=== PATIENT | female | born 1975 | race Caucasian/White ===

== ENCOUNTER 2016-12-03 22:06 | Emergency (ER) | payer BC ==
[2016-12-03 22:16] VITALS: TEMP 98.2
[2016-12-03 22:39] LABS: Appearance,Urine Cloudy (Clear); Bilirubin,Urine Negative (Negative); Glucose,Urine (UA) Negative (Negative); Ketones,Urine Negative (Negative); Leukocyte Esterase,Urine Large (Negative); Nitrite,Urine Negative (Negative); Particle Count 5517; Protein,Urine 3+ (Negative); RBC,Urine 104 /hpf (0-5); Squamous Epithelial Cell,Urine 3 /hpf (0-4); UA Billing (MACRO vs. MICRO) MICRO; Urobilinogen,Urine <2.0 mg/dL (<2.0); WBC,Urine >182 /hpf (0-5)
[2016-12-03] MEDS ORDERED: PHENAZOPYRIDINE 100 MG TAB PO STA (22:42)
[2016-12-03] MEDS ORDERED: NITROFURANTOIN MONOHYD/M-CRYST 100 MG CAP PO STA (22:43)
--- NOTE | 2016-12-03 22:47 | ED ---
Female Urogenital HPI - General Chief complaint: Urogenital Stated complaint: Female Time Seen by Provider: 12/03/16 22:16 Source: patient, RN notes reviewed Mode of arrival: ambulatory Limitations: no limitations - History of Present Illness Initial comments: Patient is a 41-year-old female with chief complaint of dysuria, urinary frequency and urgency. Patient reports she's having symptoms for 2 days. She states that she's noticed a slight pink tinge to her urine. She states that she 'll fill if she needs to go to the bathroom only she can dribble out. Patient states she has no fever or chills. Denies any abdominal or back pain. She reports that she's never had a urinary tract infection before. She reports that this may have occurred after intercourse with her . She denies any vaginal discharge or dyspareunia. Patient reports that her last menstrual cycle was one week ago. Last Menstrual Period: 11/21/16 - Related Data Previous Rx's Medication Instructions Recorded Nitrofurantoin Monohyd/M-Cryst 100 mg PO Q12HR #14 cap 12/03/16 [Macrobid] Phenazopyridine [Pyridium] 100 mg PO TID #6 tablet 12/03/16 Allergies Allergy/AdvReac Type Severity Reaction Status Date / Time No Known Allergies Allergy Verified 12/03/16 22:14 Review of Systems ROS Statement: Those systems with pertinent positive or pertinent negative responses have been documented in the HPI. ROS Other: All systems not noted in ROS Statement are negative. Past Medical History Past Medical History: No Reported History History of Any Multi-Drug Resistant Organisms: None Reported Past Surgical History: Tubal Ligation Past Psychological History: No Psychological Hx Reported Smoking Status: Never smoker Past Alcohol Use History: None Reported Past Drug Use History: None Reported General Exam - General Exam Comments Initial Comments: Wasn't 41-year-old female. No distress. General: Well appearing, well nourished, in no distress. Oriented x 3, normal mood and affect . Ambulating without difficulty. Skin: Good turgor, no rash, unusual bruising or prominent lesions Hair: Normal texture and distribution. HEENT: Head: Normocephalic, atraumatic, no visible or palpable masses, depressions, or scaring. Eyes: Visual acuity intact, conjunctiva clear, sclera non-icteric, EOM intact, PERRL. Ears: EACs clear, TMs translucent & cone of light visualized. hearing intact. Nose: No external lesions, mucosa non-inflamed, septum and turbinates normal Mouth: Mucous membranes moist, no mucosal lesions. Teeth/Gums: No obvious caries or periodontal disease. No gingival inflammation or significant resorption. Pharynx: Mucosa non-inflamed, no tonsillar hypertrophy or exudate Neck: Supple, without lesions, bruits, or adenopathy, thyroid non-enlarged and non-tender Heart: No cardiomegaly or thrills; regular rate and rhythm, no murmur or gallop Lungs: Clear to auscultation and percussion Abdomen: Bowel sounds normal, no tenderness, organomegaly, masses, or hernia Back: Spine normal without deformity or tenderness, no CVA tenderness Rectal: Normal sphincter tone, no hemorrhoids or masses palpable Extremities: No amputations or deformities, cyanosis, edema or varicosities, peripheral pulses intact Musculoskeletal: Normal gait and station. No misalignment, asymmetry, crepitation, defects, tenderness, masses, effusions, decreased range of motion, instability, atrophy or abnormal strength or tone in the head, neck, spine, ribs , pelvis or extremities. Neurologic: CN 2-12 normal. Sensation to pain, touch, and proprioception normal. Psychiatric: Oriented X3, intact recent and remote memory, judgment and insight , normal mood and affect. Limitations: no limitations Course Vital Signs 12/03/16 22:14 Temperature 98.2 F Pulse Rate 120 H Respiratory 20 Rate Blood Pressure 144/78 O2 Sat by Pulse 98 Oximetry Medical Decision Making - Medical Decision Making Is 41-year-old [employer] chief complaint of dysuria and urinary frequency for 2 days. She denies any vaginal discharge. She denies any abdominal pain fever tenderness or back pain. Patient's urinalysis was completed and does show significant signs of urinary tract infection with large etc. straights white blood cells and red blood cells. Patient will be discharged with antibiotic and Pyridium. Patient advised to urinate after intercourse as well as remain hydrated. Patient understands treatment plan will comply. Return parameters were discussed. - Lab Data Lab Results 12/03/16 12/03/16 Range/Units 22:25 22:25 Urine Color Yellow Urine Appearance Cloudy H (Clear) Urine pH 6.0 (5.0-8.0) Ur Specific [place] 1.020 (1.001-1.035) Urine Protein 3+ H (Negative) Urine Glucose (UA) Negative (Negative) Urine Ketones Negative (Negative) Urine Blood Moderate H (Negative) Urine Nitrite Negative (Negative) Urine Bilirubin Negative (Negative) Urine Urobilinogen <2.0 (<2.0) mg/dL Ur Leukocyte Esterase Large H (Negative) Urine RBC 104 H (0-5) /hpf Urine WBC >182 H (0-5) /hpf Ur Squamous Epith Cells 3 (0-4) /hpf Urine HCG, Qual Not Detected (Not Detectd) Disposition Clinical Impression: Urinary tract infection Disposition: HOME SELF-CARE Condition: Good Instructions: Urinary Tract Infection in Women (ED) Additional Instructions: Patient advised to increase fluids. Completely anabiotic prescription. Patient sees Dilia also instructed. Return to emergency Department if any alarming signs or symptoms occur. Take Motrin Tylenol for fever or chills or pain. Prescriptions: Nitrofurantoin Monohyd/M-Cryst [Macrobid] 100 mg PO Q12HR #14 cap Phenazopyridine [Pyridium] 100 mg PO TID #6 tablet Time of Disposition: 22:42
[2016-12-03 22:53] VITALS: BP 166/96; PULSE 115; RESP 16
== END 2016-12-03 22:51 | disposition home or self-care (01) ==
LOC: EC 22:06
DX: N39.0 Urinary tract infection, site not specified (principal)
CPT/HCPCS: 81001; 81025; 87077; 87086; 87186; 99283

== ENCOUNTER → 2017-01-13 | Outpatient (CLI) | payer BC ==
--- NOTE | 2017-01-13 11:23 | MM ---
Reason for exam: screening (asymptomatic). Baseline mammogram. History: Family history of breast cancer in mother at age 52. Physical Findings: Nurse did not find any significant physical abnormalities on exam. MG Screening Mammo w CAD Bilateral CC and MLO view(s) were taken. The breast tissue is heterogeneously dense. This may lower the sensitivity of mammography. Focal asymmetry stable right CC view, compression recommended. These results were verbally communicated with the patient and result sheet given to the patient on 01/13/17. ASSESSMENT: Incomplete: need additional imaging evaluation, BI-RAD 0 RECOMMENDATION: Special view mammogram of the right breast.
--- NOTE | 2017-01-13 11:34 | MM ---
Reason for exam: additional evaluation requested from abnormal screening. History: Family history of breast cancer in mother at age 52. Physical Findings: Breast exam preformed at baseline screening. MG Work Up Mamm w CAD RT LM and spot compression CC view(s) were taken of the right breast. The breast tissue is heterogeneously dense. This may lower the sensitivity of mammography. There may be some distortion on compression CC view. No persistent densities are evident. These results were verbally communicated with the patient and result sheet given to the patient on 01/13/17. ASSESSMENT: Probably benign, BI-RAD 3 RECOMMENDATION: Follow-up diagnostic mammogram of the right breast in 6 months.
== END | disposition home or self-care (01) ==
LOC: RADMAMWWP 10:04
PROVIDERS: ATTEND Family Medicine
DX: Z12.31 Encounter for screening mammogram for malignant neoplasm of breast (principal); Z80.3 Family history of malignant neoplasm of breast; R92.8 Other abnormal and inconclusive findings on diagnostic imaging of breast
CPT/HCPCS: G0202; G0206

== ENCOUNTER → 2019-03-29 | Outpatient (CLI) | payer BC ==
--- NOTE | 2019-03-29 09:45 | XR ---
EXAMINATION TYPE: XR lumbosacral spine min 4V DATE OF EXAM: 03/29/2019 CLINICAL HISTORY: On and off back pain for 3 years TECHNIQUE: Frontal, lateral, and oblique images of the lumbar spine are obtained. COMPARISON: None FINDINGS: There are 5 lumbar type vertebral bodies identified. The lumbar spine shows satisfactory alignment without evidence of acute fracture or dislocation. Vertebral body heights and disk space he ights are within normal limits. Mild to moderate anterior and lateral spurring or thoracolumbar junc tion is present. One oblique image is suboptimal in technique, the other is unremarkable. The overly ing soft tissue appears unremarkable. IMPRESSION: As above.
== END | disposition home or self-care (01) ==
LOC: RADXRYALE 08:53
PROVIDERS: ATTEND Physician Assistant Medical
DX: M54.42 Lumbago with sciatica, left side (principal)
CPT/HCPCS: 72110

== ENCOUNTER → 2020-10-30 | Outpatient (CLI) | payer BC ==
--- NOTE | 2020-10-30 09:50 | XR ---
EXAMINATION TYPE: XR knee complete RT DATE OF EXAM: 10/30/2020 COMPARISON: NONE HISTORY: Pain TECHNIQUE: Three views are submitted. FINDINGS: Mild narrowing and hypertrophic spurring involving the medial compartment of the knee and patellofemo ral joint. Small amount of fluid in the suprapatellar bursa.. Osseous structures are intact. No acu te fracture seen. IMPRESSION: 1. No acute fracture or dislocation. 2. Arthropathy correlate for osteoarthritis. 3. Small amount of fluid in the suprapatellar bursa
== END ==
LOC: RADXRYALE 09:32
PROVIDERS: ATTEND Physician Assistant
DX: M17.11 Unilateral primary osteoarthritis, right knee (principal)

== ENCOUNTER → 2021-01-20 | Outpatient (CLI) | payer BC ==
--- NOTE | 2021-01-21 00:05 | MR ---
EXAMINATION TYPE: MR knee RT wo con DATE OF EXAM: 01/20/2021 COMPARISON: None HISTORY: Right knee pain, S/P fall. Multiplanar multiecho imaging of the right knee was performed without contrast. Anterior and posterior cruciate ligaments are intact. The collateral ligaments are intact. There is m oderate knee joint effusion. The medial and lateral menisci appear intact. There is no definite tear. There is slight medial displacement of the medial meniscus. There is no evidence of a fracture. There is some decreased signal in the patella on the T1 images whitfield ggestive of mild edema. There is mild spurring at the patella. There is narrowing of the patellofemor al joint space. There is narrowing of the medial joint space. There is slight decreased cartilage on the articular surfaces. IMPRESSION: Osteoarthritic changes in the knee with cartilage loss. This is present at the patellofemoral joint a nd also medial joint space. No ligamentous tear. No significant meniscal tear. There is some degenera tive thinning of the medial meniscus.
== END | disposition home or self-care (01) ==
LOC: RADMRIMAIN 15:38
PROVIDERS: ATTEND Physician Assistant
DX: M17.11 Unilateral primary osteoarthritis, right knee (principal); M25.861 Other specified joint disorders, right knee; W19.XXXA Unspecified fall, initial encounter

== ENCOUNTER 2021-07-30 12:43 | Inpatient (IN) | payer BC, OTHER ==
[2021-07-30 16:36] LABS: Amphetamine Screen,Urine Not Detected (NotDetected); Barbiturate Screen,Urine Not Detected (NotDetected); Benzodiazepines Screen,Urine Not Detected (NotDetected); Cocaine Screen,Urine Not Detected (NotDetected); Methadone Screen, Urine Not Detected (NotDetected); Opiate Screen,Urine Not Detected (NotDetected); Oxycodone Screen, Urine Not Detected (NotDetected); Phencyclidine Screen,Urine Not Detected (NotDetected); Tricyclic Antidepressant,Urine Not Detected (NotDetected); Urn Cannabinoid Scrn Not Detected (NotDetected)
--- NOTE | 2021-07-30 16:41 | ED ---
Psych HPI - General Source: patient, RN notes reviewed Mode of arrival: ambulatory <Sherwin Rowland - Last Filed: 07/30/21 16:49> <John Go - Last Filed: 07/30/21 20:04> - General Chief Complaint: Psychiatric Symptoms Stated Complaint: Mental Health Time Seen by Provider: 07/30/21 14:58 - History of Present Illness Initial Comments: 46 old female presents to the emergency department complaining of suicidal ideations and increased depression. She notes that for the last 3-month-old her life stressors and issues have been kind of bowling up and coming to ahead at the same time. She notes she lost her mom several months ago which made things harder. She denied any specific plan at this time. She was non-homicidal. She is otherwise well-appearing in no apparent distress. She denied chest pain shortness of breath headache nausea vomiting diarrhea constipation fever fatigue chills. (Sherwin Rowland) - Related Data Home Medications Medication Instructions Recorded Confirmed Acetaminophen Tab [Tylenol Tab] 1,000 mg PO Q6HR PRN 07/30/21 07/30/21 Naproxen Sodium [Aleve] 440 mg PO BID PRN 07/30/21 07/30/21 Allergies Allergy/AdvReac Type Severity Reaction Status Date / Time No Known Allergies Allergy Verified 07/30/21 16:20 Review of Systems ROS Other: All systems not noted in ROS Statement are negative. <Sherwin Rowland - Last Filed: 07/30/21 16:49> ROS Other: All systems not noted in ROS Statement are negative. <John Go - Last Filed: 07/30/21 20:04> ROS Statement: Those systems with pertinent positive or pertinent negative responses have been documented in the HPI. Past Medical History Past Medical History: No Reported History History of Any Multi-Drug Resistant Organisms: None Reported Past Surgical History: Tubal Ligation Past Psychological History: Depression Smoking Status: Former smoker Past Alcohol Use History: Occasional Past Drug Use History: None Reported <Sherwin Rowland - Last Filed: 07/30/21 16:49> General Exam Limitations: no limitations General appearance: alert, in no apparent distress, obese Head exam: Present: atraumatic, normocephalic, normal inspection Eye exam: Present: normal appearance, PERRL, EOMI. Absent: scleral icterus, conjunctival injection, periorbital swelling ENT exam: Present: normal exam, mucous membranes moist Neck exam: Present: normal inspection Respiratory exam: Present: normal lung sounds bilaterally. Absent: respiratory distress, wheezes, rales, rhonchi, stridor Cardiovascular Exam: Present: regular rate, normal rhythm, normal heart sounds. Absent: systolic murmur, diastolic murmur, rubs, gallop, clicks GI/Abdominal exam: Present: soft, normal bowel sounds. Absent: distended, tenderness, guarding, rebound, rigid Extremities exam: Present: normal inspection, full ROM, normal capillary refill. Absent: tenderness, pedal edema, joint swelling, calf tenderness Neurological exam: Present: alert, oriented X3 Psychiatric exam: Present: normal affect, depressed, suicidal ideation. Absent: agitated, anxious, flat affect, manic, homicidal ideation Skin exam: Present: warm, dry, intact, normal color. Absent: rash <Sherwin Rowland - Last Filed: 07/30/21 16:49> Course Vital Signs 07/30/21 12:59 Temperature 97.9 F Pulse Rate 83 Respiratory 16 Rate Blood Pressure 123/87 O2 Sat by Pulse 99 Oximetry Medical Decision Making <Sherwin Rowland - Last Filed: 07/30/21 16:49> <John Go - Last Filed: 07/30/21 20:04> - Medical Decision Making 46-year-old female with increased depression and suicidal ideations with no plan. Urine drug screen and alcohol breath test ordered. Patient was cleared for EPS evaluation. EPS was contacted at 4:30 PM. Case signed out to Dr. Carmona at 4:49 PM (Sherwin Rowland) Care signed out to me by previous physician tiler's assistant, Sage Rowland. Debra rees, patient is a 46-year-old feel presents with suicidal thoughts. Patient was cleared medically pending EPS recommendations. Patient was provided by EPS and will be admitted to 3 W. Patient will sign in voluntarily. (John Go) - Lab Data Lab Results 07/30/21 07/30/21 Range/Units 16:19 19:00 Urine Opiates Screen Not Detected (NotDetected) Ur Oxycodone Screen Not Detected (NotDetected) Urine Methadone Screen Not Detected (NotDetected) Ur Propoxyphene Screen Not Detected (NotDetected) Ur Barbiturates Screen Not Detected (NotDetected) U Tricyclic Antidepress Not Detected (NotDetected) Ur Phencyclidine Scrn Not Detected (NotDetected) Ur Amphetamines Screen Not Detected (NotDetected) U Methamphetamines Scrn Not Detected (NotDetected) U Benzodiazepines Scrn Not Detected (NotDetected) Urine Cocaine Screen Not Detected (NotDetected) U Marijuana (THC) Screen Not Detected (NotDetected) Coronavirus (PCR) Not Detected (Not Detectd) Disposition <Sherwin Rowland - Last Filed: 07/30/21 16:49> <John Go - Last Filed: 07/30/21 20:04> Clinical Impression: Depression, Suicidal ideation Disposition: ADMITTED IP TO THIS [facility] Condition: Stable Referrals: Ronal Butler DO [Primary Care Provider] - 1-2 days
[2021-07-30] MEDS ORDERED: MAG HYDROX/AL HYDROX/SIMETH 30 ML CUP PO PRN (20:09)
[2021-07-30] MEDS ORDERED: HALOPERIDOL LACTATE 5 MG/ML 1 ML VIAL IM PRN (20:09)
[2021-07-30] MEDS ORDERED: LORazepam 1 MG TAB PO PRN (20:09)
[2021-07-30] MEDS ORDERED: MAGNESIUM HYDROXIDE 2,400 MG/10 ML CUP PO PRN (20:09)
[2021-07-30] MEDS ORDERED: haloperidoL 5 MG TAB PO PRN (20:09)
[2021-07-30] MEDS ORDERED: LORazepam 2 MG/ML INJ IM PRN (20:09)
[2021-07-30] MEDS: ACETAMINOPHEN TAB 325 MG TAB PO PRN (21:59)
[2021-07-31 07:14] LABS: Basophils % (A) 1 %; Eosinophils # (A) 0.2 k/uL (0-0.7); Eosinophils % (A) 3 %; HCT 44.7 % (34.0-46.0); HGB 14.7 gm/dL (11.4-16.0); Lymphocytes # (A) 2.3 k/uL (1.0-4.8); Lymphocytes % (A) 34 %; MCH 28.7 pg (25.0-35.0); MCHC 32.8 g/dL (31.0-37.0); MCV 87.6 fL (80.0-100.0); Mean Platelet Volume 7.8; Monocytes # (A) 0.4 k/uL (0-1.0); Monocytes % (A) 6 %; Neutrophils # (A) 3.7 k/uL (1.3-7.7); Neutrophils % (A) 55 %; Platelet Count 222 k/uL (150-450); RBC 5.11 m/uL (3.80-5.40); RDW 13.2 % (11.5-15.5); WBC 6.8 k/uL (3.8-10.6)
[2021-07-31 07:45] LABS: Albumin 4.4 g/dL (3.5-5.0); Bilirubin, Delta 0.4 mg/dL (0.0-0.2); Bilirubin,Unconjugated 0.3 mg/dL (0.0-1.1); Calcium 9.7 mg/dL (8.4-10.2); Potassium 4.9 mmol/L (3.5-5.1); Total Bilirubin 0.7 mg/dL (0.2-1.3); Total Protein 7.8 g/dL (6.3-8.2)
[2021-07-31] MEDS ORDERED: NICOTINE 14MG/24HR PATCH TRANSDERM SCH (09:00)
[2021-07-31] MEDS ORDERED: FLUoxetine HCL 10 MG CAP PO STA (10:58)
[2021-07-31] MEDS: ACETAMINOPHEN TAB 325 MG TAB PO PRN ×2 (11:42→20:31)
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
--- NOTE | 2021-07-31 18:01 | P.CONS ---
History of Present Illness - Reason for Consult Consult date: 07/31/21 Medical management - Chief Complaint Depression and suicidal ideation - History of Present Illness 46 old female presents to the emergency department complaining of suicidal ideations and increased depression. She notes that for the last 3-month-old her life stressors and issues have been kind of bowling up and coming to ahead at the same time. She notes she lost her mom several months ago which made things harder. She denied any specific plan at this time. She was non-homicidal. She is otherwise well-appearing in no apparent distress. She denied chest pain shortness of breath headache nausea vomiting diarrhea constipation fever fatigue chills. Patient takes Naprosyn and acetaminophen at home Workup in ED including a urine drug screen was unremarkable; WBC 6.8, hemoglobin 14.7 and platelet count of 222, sodium 137, potassium 4.9, BUN 19 with creatinine of 0.89 Review of Systems REVIEW OF SYSTEMS: CONSTITUTIONAL: No fever, no malaise, no fatigue. HEENT: No recent visual problems or hearing problems. Denied any sore throat. CARDIOVASCULAR: No chest pain, orthopnea, PND, no palpitations, no syncope. PULMONARY: No shortness of breath, no cough, no hemoptysis. GASTROINTESTINAL: No diarrhea, no nausea, no vomiting, no abdominal pain. NEUROLOGICAL: No headaches, no weakness, no numbness. HEMATOLOGICAL: Denies any bleeding or petechiae. GENITOURINARY: Denies any burning micturition, frequency, or urgency. MUSCULOSKELETAL/RHEUMATOLOGICAL: Denies any joint pain, swelling, or any muscle pain. ENDOCRINE: Denies any polyuria or polydipsia. The rest of the 14-point review of systems is negative. Past Medical History Past Medical History: No Reported History History of Any Multi-Drug Resistant Organisms: None Reported Past Surgical History: Tubal Ligation Past Psychological History: Depression Smoking Status: Never smoker Past Alcohol Use History: Occasional Past Drug Use History: None Reported Medications and Allergies Home Medications Medication Instructions Recorded Confirmed Type Acetaminophen Tab [Tylenol Tab] 1,000 mg PO Q6HR PRN 07/30/21 07/30/21 History Naproxen Sodium [Aleve] 440 mg PO BID PRN 07/30/21 07/30/21 History Allergies Allergy/AdvReac Type Severity Reaction Status Date / Time No Known Allergies Allergy Verified 07/30/21 16:20 Physical Exam Vitals: Vital Signs Temp Pulse Resp BP Pulse Ox 07/30/21 21:48 98.6 F 86 18 108/77 97 Intake and Output 07/30/21 07/31/21 07/31/21 22:59 06:59 14:59 Other: Weight 107.5 kg - Constitutional General appearance: Present: average body habitus, cooperative, no acute distress - EENT Eyes: Present: anicteric sclerae, EOMI, PERRLA, normal appearance ENT: Present: hearing grossly normal, normal oropharynx Ears: bilateral: normal - Neck Neck: Present: normal ROM. Absent: lymphadenopathy, rigidity, thyromegaly Carotids: negative: bruit present Thyroid: bilateral: normal size, negative: enlarged, nodule - Respiratory Respiratory: bilateral: CTA, negative: rales, rhonchi, wheezing - Cardiovascular Rhythm: regular Heart sounds: normal: S1, S2 Abnormal Heart Sounds: Absent: systolic murmur, diastolic murmur - Gastrointestinal General gastrointestinal: Present: normal bowel sounds, soft. Absent: distended, organomegaly, tenderness - Genitourinary Genitourinary Comment(s): deferred - Integumentary Integumentary: Present: normal turgor. Absent: jaundiced, rash, ulcer - Neurologic Neurologic: Present: CNII-XII intact. Absent: focal deficits - Musculoskeletal Musculoskeletal: Present: gait normal, strength equal bilaterally - Psychiatric Psychiatric: Present: A&O x's 3, appropriate affect, intact judgment & insight Results CBC & Chem 7: 07/31/21 06:31 07/31/21 06:31 Labs: Abnormal Lab Results - Last 24 Hours (Table) 07/31/21 Range/Units 06:31 BUN 19 H (7-17) mg/dL Delta Bilirubin 0.4 H (0.0-0.2) mg/dL Assessment and Plan Assessment: 1. Depression; patient has been recommended Prozac 30 mg daily along with Ativan and Haldol when necessary for agitation and aggression 2. Suicidal ideation; your management 3. Mild renal insufficiency/dehydration; patient instructed on increased fluid intake; we will monitor renal function periodically 4. Degenerative joint disease; we will continue with home dose of Tylenol and Aleve 5. Alcohol use disorder; counseling done DVT prophylaxis; ambulation CODE STATUS; full code
[2021-08-01] MEDS: FLUoxetine HCL 10 MG CAP PO SCH (08:18)
--- NOTE | 2021-08-01 10:24 | P.PN ---
Subjective Progress Note Date: 08/01/21 Principal diagnosis: Major depressive disorder unspecified Rule out pervasive persistent depressive disorder/dysthymia Alcohol use disorder unspecified Methamphetamine use disorder by history in remission Rule out personality disorder Subjective data: Patient reports that she is an alcoholic Patient brought up the methamphetamine use in the past Patient stated that she is also a heavy spender Patient states that she only drinks once a month but usually drinks to intoxication She continues to repeat that she does stupid things but would not elaborate She states that she continues to span that she buys things for everyone except for herself and wants to please everyone Patient has 5 children and 10 grandchildren and admits that she does feel happy when she is her grandkids She states that the spending habit has been getting her pain quite a bit of trouble but did not elaborate When asked about her depression patient became very tearful and sad but continues to repeat that she is fine Objective data: Patient is alert and oriented to place and person Thought processes are goal-directed sequential and logical Patient however comes across as somewhat guarded and tries to minimize her level of depression although she did admit making a suicide attempt by cutting herself and was hospitalized in 2001 when she was started on Wellbutrin She states that she does not remember the details since this was 27 years ago She denies getting any previous help in the past Affect was downcast Self-esteem and confidence are poor Responses are quick and abrupt but appropriate to the questions asked Self-esteem and confidence are poor There is no evidence of any overt psychosis Formal and operational judgment and problem-solving skills are impaired Assessment: Major depressive disorder acute Rule out dysthymic disorder/pervasive persistent depressive disorder Rule out personality disorder Alcohol use disorder /risky alcohol use Plan: We will continue the current pharmacotherapy and supportive counseling Patient will also participate in on the wise activities individual milieu group OT and RT PT and pharmacotherapy Would also recommend individual and family therapy Maintain supportive care and safety precautions as patient has a tendency to minimize No side effects on her current medications reported John Tellez M.D. 08/01/2021 Objective - Vital Signs Vital signs: Vital Signs Temp 97.3 F L 08/01/21 07:17 Pulse 59 L 08/01/21 07:17 Resp 16 08/01/21 07:17 BP 104/51 08/01/21 07:17 Pulse Ox 97 07/30/21 21:48 - Labs CBC & Chem 7: 07/31/21 06:31 12/10/21 06:31
[2021-08-01] MEDS: ACETAMINOPHEN TAB 325 MG TAB PO PRN (18:53)
[2021-08-02] MEDS: FLUoxetine HCL 10 MG CAP PO SCH (08:40)
--- NOTE | 2021-08-02 10:29 | P.PN ---
Subjective Progress Note Date: 08/02/21 Principal diagnosis: Major depressive disorder unspecified Rule out pervasive persistent depressive disorder/dysthymia Alcohol use disorder unspecified Methamphetamine use disorder by history in remission Rule out personality disorder Subjective data: The patient reports that she had a good visit with her yesterday She states that he gets frustrated that he is unable to help her and wants to make her better She states that she has avoided getting proper how in the past as she always felt being judged by the doctors or the PA when she went to them for any help She gives an example where she would ask for any pain medication besides opiates because she felt that the physician immediately would blood bank calendar control clerk her as drug seeking She admits that she needs to change and make some important changes in her life She states that her father also used to be on Antabuse and that that would be something she would also consider Objective data: Patient is alert and oriented to place and person Thought processes are goal-directed sequential and logical Patient is lot more open and less guarded and is able to verbalize her feelings as well as the feelings of judgment and rejection by the previous physicians especially when they learned about her alcoholism and that she eventually learned to keep it quiet and to avoid seeing them Patient's affect remains downcast Self-esteem and confidence are poor Responses are quick and abrupt but appropriate to the questions asked Self-esteem and confidence are poor There is no evidence of any overt psychosis Formal and operational judgment and problem-solving skills and to be gradually improving. Patient is moving on from self-deprecation and self-loathing to constructive thinking and working on positives Assessment: Major depressive disorder acute Rule out dysthymic disorder/pervasive persistent depressive disorder Rule out personality disorder Alcohol use disorder /risky alcohol use Plan: We will continue the current pharmacotherapy and supportive counseling Patient will also participate in on the wise activities individual milieu group OT and RT PT and pharmacotherapy Would also recommend individual and family therapy Maintain supportive care and safety precautions as patient has a tendency to minimize No side effects on her current medications reported Patient may also be a candidate for Antabuse but wants to think it over before she decides to go on [facility]/2021 Objective - Vital Signs Vital signs: Vital Signs Temp 95.9 F L 08/02/21 07:16 Pulse 71 08/02/21 07:16 Resp 16 08/02/21 07:16 BP 119/68 08/02/21 07:16 Pulse Ox 97 07/30/21 21:48 Intake & Output 08/01/21 08/02/21 08/02/21 18:59 06:59 18:59 Weight 108.1 kg - Labs CBC & Chem 7: 07/31/21 06:31 07/31/21 06:31
[2021-08-03 06:13] VITALS: BP 97/51; PULSE 70; RESP 14; TEMP 97.1
[2021-08-03] MEDS: FLUoxetine HCL 10 MG CAP PO SCH (08:48)
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
== END 2021-08-03 15:07 | disposition home or self-care (01) | DRG 885 ==
LOC: EC 12:43 → 3MHU 20:07
PROVIDERS: ADMIT Psychiatry & Neurology Psychiatry; ATTEND Psychiatry & Neurology Psychiatry
DX: F33.2 Major depressive disorder, recurrent severe without psychotic features (principal); Z68.41 Body mass index [BMI] 40.0-44.9, adult; F15.11 Other stimulant abuse, in remission; F10.10 Alcohol abuse, uncomplicated; E66.9 Obesity, unspecified; Z20.822 Contact with and (suspected) exposure to COVID-19; F43.10 Post-traumatic stress disorder, unspecified; F41.9 Anxiety disorder, unspecified; M54.9 Dorsalgia, unspecified; M25.559 Pain in unspecified hip; G89.29 Other chronic pain; E86.0 Dehydration; N28.9 Disorder of kidney and ureter, unspecified; M19.90 Unspecified osteoarthritis, unspecified site; Z91.52 Personal history of nonsuicidal self-harm; Z87.891 Personal history of nicotine dependence; Z98.51 Tubal ligation status; Z62.810 Personal history of physical and sexual abuse in childhood; Z71.41 Alcohol abuse counseling and surveillance of alcoholic; Z81.8 Family history of other mental and behavioral disorders
CPT/HCPCS: 80053; 80306; 82075; 82248; 83036; 84443; 85025; 87635; 99285

== ENCOUNTER 2023-01-16 11:56 | Emergency (ER) | payer BC ==
[2023-01-16] MEDS ORDERED: HYDROmorphone 1 MG/ML 1 ML SYRINGE IVP STA (12:49)
[2023-01-16] MEDS ORDERED: CLINDAMYCIN 600 MG in DEXTROSE 5% IN WATER 50 ML IVPB STA ×2 (12:49)
[2023-01-16] MEDS ORDERED: ACETAMINOPHEN TAB 500 MG TAB PO STA (13:04)
[2023-01-16 13:37] LABS: Basophils % (A) 0 %; Eosinophils # (A) 0.3 k/uL (0-0.7); Eosinophils % (A) 2 %; HGB 13.4 gm/dL (11.4-16.0); Lymphocytes # (A) 1.4 k/uL (1.0-4.8); Lymphocytes % (A) 13 %; MCH 28.5 pg (25.0-35.0); MCHC 34.4 g/dL (31.0-37.0); MCV 82.7 fL (80.0-100.0); Mean Platelet Volume 7.8; Monocytes # (A) 0.5 k/uL (0-1.0); Monocytes % (A) 5 %; Neutrophils # (A) 8.7 k/uL (1.3-7.7); Neutrophils % (A) 79 %; Platelet Count 200 k/uL (150-450); RBC 4.71 m/uL (3.80-5.40); RDW 13.2 % (11.5-15.5)
[2023-01-16 13:46] LABS: ALT 17 U/L (4-34); AST 19 U/L (14-36); African American GFR (CKD) >90 (>60 ml/min/1.73 sqM); Albumin 4.1 g/dL (3.5-5.0); Alkaline Phosphatase 64 U/L (38-126); Anion Gap 9 mmol/L; Blood Urea Nitrogen 9 mg/dL (7-17); Carbon Dioxide 24 mmol/L (22-30); Chloride 105 mmol/L (98-107); Glucose 117 mg/dL (74-99); Non-African American GFR(CKD) 82 (>60 ml/min/1.73 sqM); Potassium 4.4 mmol/L (3.5-5.1); Sodium 138 mmol/L (137-145); Total Bilirubin 0.7 mg/dL (0.2-1.3); Total Protein 7.1 g/dL (6.3-8.2)
--- NOTE | 2023-01-16 14:03 | CT ---
EXAMINATION TYPE: CT soft tissue neck w con CT DLP: 571.4 mGycm, Automated exposure control for dose reduction was used. DATE OF EXAM: 01/16/2023 1:45 PM COMPARISON: None. CLINICAL INDICATION:Female, 47 years old with history of dental extraction, cant swallow; , dental ex traction for denture placement 01/13. pt now c/o of dysphagia. right side worse than left TECHNIQUE: Standard enhanced CT of the neck. Axial sections with coronal and sagittal reformats were obtained. Contrast used:100ml mL of Isovue 300 with IV Contrast, Oral contrast used: none. FINDINGS: Brain: Visualized portions are grossly unremarkable. Orbits: Unremarkable Sinuses: Grossly unremarkable. Spaces of the neck: see findings below. Musculoskeletal: There is suspected post surgical changes to the right lower mandible. No organizing fluid collection. There is some inflammation changes in the subcutaneous tissues and myofascial plane s around the surgical site. No organizing fluid collection spine. The pharynx is somewhat displaced t o the left. Lymph nodes: Multiple nonenlarged lymph nodes are seen along both anterior chains of the neck. Vascular structures: Visualized major arteries are patent without evidence of aneurysm. Thoracic Inlet/airway: Airway is patent. The lung apices are clear. Soft tissues/Thyroid: Thyroid and remainder of the soft tissues are unremarkable. Other: none. IMPRESSION Post surgical changes on the right lower mandible. Mild Fat stranding changes are present. There is m ild swelling of the soft tissues of the neck in the parapharyngeal space leftward deviation of the ph arynx mildly. No organizing fluid collection at this time. Findings suggestive of infectious/inflamma tory process.
[2023-01-16] MEDS ORDERED: PIPERACILLIN-TAZOBACTAM 3.375 GM in SODIUM CHLORIDE 0.9% 100 ML IVPB STA (14:17)
--- NOTE | 2023-01-16 14:29 | ED ---
ENT HPI - General Chief complaint: Dental/Oral Stated complaint: post op pain tonsils Time Seen by Provider: 01/16/23 12:15 Source: patient Mode of arrival: ambulatory Limitations: no limitations - History of Present Illness Initial comments: 47-year-old female who presents to the emergency department reporting dental pain and difficulty swallowing. She had 16 teeth extracted on the by Dr. Denney. States that starting yesterday she began having some tension in her jaw and feels like she has fullness to her neck. Feels as if she is having difficulty swallowing even water at this time. She denies the faculty breathing. Does admit some facial swelling. She is not on any antibiotics. Was told to take ibuprofen 600 mg. She does admit to chills. Patient arrives and has a fever in the emergency department. No other alleviating, prec ipitating or modifying factors - Related Data Home Medications Medication Instructions Recorded Confirmed Naproxen Sodium [Aleve] 440 mg PO BID PRN 07/30/21 07/30/21 Previous Rx's Medication Instructions Recorded Disulfiram [Antabuse] 250 mg PO DAILY #30 tablet 08/03/21 FLUoxetine HCL [PROzac] 40 mg PO DAILY 30 Days cap 08/03/21 Allergies Allergy/AdvReac Type Severity Reaction Status Date / Time No Known Allergies Allergy Verified 01/16/23 12:02 Review of Systems ROS Statement: Those systems with pertinent positive or pertinent negative responses have been documented in the HPI. ROS Other: All systems not noted in ROS Statement are negative. Past Medical History Past Medical History: No Reported History History of Any Multi-Drug Resistant Organisms: None Reported Past Surgical History: Tubal Ligation Past Psychological History: Depression Smoking Status: Never smoker Past Alcohol Use History: Occasional Past Drug Use History: None Reported General Exam Limitations: no limitations General appearance: alert, in no apparent distress Head exam: Present: atraumatic, normocephalic, normal inspection Eye exam: Present: normal appearance, PERRL, EOMI. Absent: scleral icterus, conjunctival injection, periorbital swelling ENT exam: Present: mucous membranes moist, other (Tenderness to the neck and bilateral TMJ. No brawny edema or erythema appreciated. Gums are edematous. Multiple sockets with clotted blood. No active bleeding. Posterior pharynx appears clear.) Neck exam: Present: normal inspection. Absent: tenderness, meningismus, lymphadenopathy Respiratory exam: Present: normal lung sounds bilaterally. Absent: respiratory distress, wheezes, rales, rhonchi, stridor Cardiovascular Exam: Present: regular rate, normal rhythm, normal heart sounds. Absent: systolic murmur, diastolic murmur, rubs, gallop, clicks GI/Abdominal exam: Present: soft, normal bowel sounds. Absent: distended, tenderness, guarding, rebound, rigid Extremities exam: Present: normal inspection, full ROM, normal capillary refill. Absent: tenderness, pedal edema, joint swelling, calf tenderness Back exam: Present: normal inspection Neurological exam: Present: alert, oriented X3, CN II-XII intact Psychiatric exam: Present: normal affect, normal mood Skin exam: Present: warm, dry, intact, normal color. Absent: rash Course Vital Signs 01/16/23 01/16/23 01/16/23 11:59 12:02 13:16 Temperature 100.0 F H 100.7 F H 101 F H Pulse Rate 84 95 87 Respiratory 20 16 20 Rate Blood Pressure 121/76 142/77 129/79 O2 Sat by Pulse 96 98 Oximetry 01/16/23 01/16/23 01/16/23 14:52 16:00 16:53 Temperature 98.5 F 99 F Pulse Rate 60 76 68 Respiratory 16 16 16 Rate Blood Pressure 132/88 132/87 138/68 O2 Sat by Pulse 98 98 98 Oximetry Medical Decision Making - Medical Decision Making Was pt. sent in by a medical professional or institution (, PA, PRESIDENT PRACTICING UROLOGIST, urgent care, hospital, or [place] health care facility...) When possible be specific @ -No Did you speak to anyone other than the patient for history (EMS, parent, family, police, friend...)? What history was obtained from this source @ -No Did you review nursing and triage notes (agree or disagree)? Why? @ -I reviewed and agree with nursing and triage notes Were old charts reviewed (outside hosp., previous admission, EMS record, old EKG, old radiological studies, urgent care reports/EKG's, [place] health care facility records)? Report findings @ -No old charts were reviewed Differential Diagnosis (chest pain, altered mental status, abdominal pain women, abdominal pain men, vaginal bleeding, weakness, fever, dyspnea, syncope, headache, dizziness, GI bleed, back pain, seizure, CVA, palpatations, mental health, musculoskeletal)? @ -dental caries, dental abscess, ludwigs EKG interpreted by me (3pts min.). @ -not done X-rays interpreted by me (1pt min.). @ -not done CT interpreted by me (1pt min.). @ -yes - possible early ludwigs U/S interpreted by me (1pt. min.). @ -None done What testing was considered but not performed or refused? (CT, X-rays, U/S, labs)? Why? @ -None What meds were considered but not given or refused? Why? @ -None Did you discuss the management of the patient with other professionals (professionals i.e. , PA, PRESIDENT PRACTICING UROLOGIST, lab, RT, psych nurse, school social worker, quarter trimmer, teacher, [employer] plans staff officer, geriatric case manager)? Give summary @ -yes, dr ramírez at [facility] Was smoking cessation discussed for >3mins.? @ -No Was critical care preformed (if so, how long)? @ -No Were there social determinants of health that impacted care today? How? (Homelessness, low income, unemployed, alcoholism, drug addiction, transportat ion, low edu. Level, literacy, decrease access to med. care, halfway, rehab)? @ -No Was there de-escalation of care discussed even if they declined (Discuss DNR or withdrawal of care, Hospice)? DNR status @ -No What co-morbidities impacted this encounter? (DM, HTN, Smoking, COPD, CAD, Cancer, CVA, ARF, Chemo, Hep., AIDS, mental health diagnosis, sleep apnea, morbid obesity)? @ -None Was patient admitted / discharged? Hospital course, mention meds given and route, prescriptions, significant lab abnormalities, going to OR and other pertinent info. @ - Upon arrival patient is placed into room 20. A thorough history and physical exam was performed. Patient is tolerating her secretions. She does have a fever. She is given 1 gram of Tylenol for fever and 1 g of Dilaudid for pain. Laboratory studies are completed and the patient goes for a CT of her neck which does demonstrate concerns for possible Tyson angina. Results are discussed with the patient. Dr. Guardado is paged. Patient will be transferred to outside facility where there is 24-hour ENT coverage. Patient did receive 600 mg of clindamycin at the beginning of her workup. When scan did demonstrate possible Tyson angina I did add on Zosyn IV. I spoke with Dr. ramírez at [facility] who does accept transfer of the patient. [facility] forms are signed. Patient transferred in stable condition with guarded prognosis Undiagnosed new problem with uncertain prognosis? @ -yes Drug Therapy requiring intensive monitoring for toxicity (Heparin, Nitro, Insulin, Cardizem)? @ -No Were any procedures done? @ -No Diagnosis/symptom? @ -acute oral swelling, acute neck pain, possible ludwigs, recent dental extraction Acute, or Chronic, or Acute on Chronic? @ -acute Uncomplicated (without systemic symptoms) or Complicated (systemic symptoms)? @ -complicated Side effects of treatment? @ -No Exacerbation, Progression, or Severe Exacerbation? @ -No Poses a threat to life or bodily function? How? (Chest pain, [place], [place], pneumonia, PE, COPD, DKA, ARF, appy, cholecystitis, CVA, Diverticulitis, Homicidal, Suicidal, threat to staff... and all critical care pts) @ -yes - ludwigs can cause airway swelling and - Lab Data Result diagrams: 01/16/23 12:48 01/16/23 12:48 Lab Results 01/16/23 01/16/23 01/16/23 Range/Units 12:48 12:48 12:48 WBC 11.0 H (3.8-10.6) k/uL RBC 4.71 (3.80-5.40) m/uL Hgb 13.4 (11.4-16.0) gm/dL Hct 39.0 (34.0-46.0) % MCV 82.7 (80.0-100.0) fL MCH 28.5 (25.0-35.0) pg MCHC 34.4 (31.0-37.0) g/dL RDW 13.2 (11.5-15.5) % Plt Count 200 (150-450) k/uL MPV 7.8 Neutrophils % 79 % Lymphocytes % 13 % Monocytes % 5 % Eosinophils % 2 % Basophils % 0 % Neutrophils # 8.7 H (1.3-7.7) k/uL Lymphocytes # 1.4 (1.0-4.8) k/uL Monocytes # 0.5 (0-1.0) k/uL Eosinophils # 0.3 (0-0.7) k/uL Basophils # 0.0 (0-0.2) k/uL Sodium 138 (137-145) mmol/L Potassium 4.4 (3.5-5.1) mmol/L Chloride 105 (98-107) mmol/L Carbon Dioxide 24 (22-30) mmol/L Anion Gap 9 mmol/L BUN 9 (7-17) mg/dL Creatinine 0.84 (0.52-1.04) mg/dL Est GFR (CKD-EPI)AfAm >90 (>60 ml/min/1.73 sqM) Est GFR (CKD-EPI)NonAf 82 (>60 ml/min/1.73 sqM) Glucose 117 H (74-99) mg/dL Plasma Lactic Acid Geovany 0.9 (0.7-2.0) mmol/L Calcium 9.0 (8.4-10.2) mg/dL Total Bilirubin 0.7 (0.2-1.3) mg/dL AST 19 (14-36) U/L ALT 17 (4-34) U/L Alkaline Phosphatase 64 (38-126) U/L Total Protein 7.1 (6.3-8.2) g/dL Albumin 4.1 (3.5-5.0) g/dL Disposition Clinical Impression: Ludwigs angina, H/O tooth extraction Disposition: OTHER INSTITUTION NOT DEFINED Condition: Serious Is patient prescribed a controlled substance at d/c from ED?: No Referrals: Ronal Butler DO [Primary Care Provider] - 1-2 days Time of Disposition: 15:15 - Out of Hospital Transfer - Req. Specs Out of Hospital Transfer - Requested Specifics: Other Emergency Center ([facility])
[2023-01-16 14:53] VITALS: RESP 16
[2023-01-16 16:55] VITALS: BP 138/68; PULSE 68; TEMP 99
== END 2023-01-16 16:54 | disposition other institution (70) ==
LOC: EC 11:56
DX: K12.2 Cellulitis and abscess of mouth (principal); F32.A Depression, unspecified; Z79.1 Long term (current) use of non-steroidal anti-inflammatories (NSAID)
CPT/HCPCS: 36415; 80053; 83605; 85025; 87040; 70491; 99285; 96365; 96367; 96366; 96375; J2543; J1170; Q9967